=== PATIENT | female | born 1975 | race Caucasian/White ===

== ENCOUNTER 2017-01-24 14:34 | Emergency (ER) | payer SELFPAY ==
--- NOTE | ~2017-01-24 | CT4 ---
[facility] A Service of [facility] RADIOLOGY TEXT RESULTS PATIENT: BEBE MARISCAL LOCATION: SED : 71 UNIT #: [id number] AGE: [address]: Dru Diaz MD SEX: F ORDER DR: [id number] [place] [id number] E MR#: [id number] #: [id number] NAME: BEBE MARISCAL : 1975 SEX: F STUDY DATE/TIME: 01/24/2017 16:30 UNIT: SED ROOM: STUDY DESCRIPTION: CT Abd and Pelv Wo Cont Attending Physician: Dru Diaz M.D. Ordering Physician: Dru Diaz M.D. [facility] MED[facility] IMAG[facility] REPORT This report is preliminary unless electronic signature is present. EXAM CT abdomen and pelvis without contrast HISTORY Flank pain and fever for [address] abdomen and pelvis was performed without contrast. This CT exam was performed with one or more of the following radiation dose reduction techniques: Automatic exposure control, adjustment of mA and/or kV according to patient size, and iterative reconstruction. CT ABDOMEN: No renal calculi. No hydronephrosis or perinephric stranding. The liver, gallbladder, spleen, pancreas, kidneys, and left adrenal gland are normal. Incidental calcification in the right adrenal gland. No ascites. No inflammatory stranding. No bowel dilatation. CT PELVIS: Normal appendix. No free fluid. Hysterectomy. Urinary bladder is decompressed. The adnexa are unremarkable. No bowel dilatation. IMPRESSION 1. Negative noncontrast CT abdomen and pelvis. 2. No urinary calculi or obstruction. 3. Normal appendix. 4. Hysterectomy. Dictated by... Riley Patel M.D. THIS IS AN ELECTRONICALLY VERIFIED REPORT [facility] A Service of [facility] RADIOLOGY TEXT RESULTS PATIENT: BEBE MARISCAL LOCATION: SED : 71 UNIT #: [id number] AGE: [address]: Dru Diaz MD SEX: F ORDER DR: Riley Patel M.D. at 01/24/2017 10:59 PM DFL/carlos alberto TD: 01/24/2017 20:26 JOB #: [id number] MEDICAL IMAGING REPORT Page 1 of 1
[~2017-01-24 14:34] MED LIST: ALBUTEROL17 GM; ALBUTEROL17 GM INH; AMOXICILLIN500 M1 PO; BIAXIN PO; CLEOCIN HCL300 M1 PO; DENTAL BALLS; EC-NAPROSYN500 MG PO; HCTZ; HYDROCHLOROTHIA25 MG PO; IBUPROFEN; IBUPROFEN100 M1; IBUPROFEN100 MG; IBUPROFEN800 MG PO; JET ALERT PO; NO MEDICATIONS; NORCO1 TAB 10/3 DOB; PEN-VEE K PO; PHENERGAN DM1 ML PO; PREDNISONE PO; PROVENTIL INH0.5 ML HHN; PYRIDIUM PO; QVAR7.3 G1; ROBAXIN 750750 MG PO; TYLENOL #3 PO; VOLTAREN50 MG PO; VOLTAREN75 MG PO
[2017-01-24 14:37] LABS: URINE SOURCE CLEAN CATCH
[2017-01-24 14:41] LABS: URINE APPEARANCE CLEAR; URINE BILIRUBIN NEG (NEG); URINE BLOOD NEG (NEG); URINE COLOR YELLOW; URINE GLUCOSE NEG (NORM); URINE KETONE NEG (NEG); URINE LEUKOCYTE ESTERASE NEG (NEG); URINE NITRATE NEG (NEG); URINE PH 5.5 (5-8); URINE PROTEIN NEG (NEG); URINE SPECIFIC GRAVITY >=1.030 (1.003-1.035); URINE UROBILINOGEN 0.2 MG/DL (NORM)
[2017-01-24 14:46] LABS: MICRO INDICATED? NO
== END 2017-01-24 17:34 | disposition home or self-care (01) ==
LOC: SED 14:34
PROVIDERS: Nurse Practitioner
DX: M51.16 Intervertebral disc disorders with radiculopathy, lumbar region (principal); F17.210 Nicotine dependence, cigarettes, uncomplicated
CPT/HCPCS: 74176; 81003; 84703; 94640; 96372; 99284; J1885